=== PATIENT | male | born 1990 | race Caucasian/White ===

== ENCOUNTER 2023-07-24 15:06 | Emergency (ER) | payer SELFPAY ==
[2023-07-24 15:08] VITALS: BP 143/81; PULSE 80; RESP 16; TEMP 36.8; O2SAT 98; BMI 35.2
--- NOTE | 2023-07-24 15:38 | [facility].EDGENADL ---
Discharge Plan Disposition Patient Disposition: Home, Self-Care Chief Complaint: Skin/Abscess/Foreign Body Referrals Follow up/Referrals: Provider,MD Marii [Primary Care Provider] - See instructions Trenton Vick MD [Staff Physician] - See instructions Activity Restrictions/Add. Instructions Additional Instructions/Restrictions: Call your family doctor to establish care for this visit to the emergency department and schedule follow-up within 48 hours to ensure improvement. If you have any worsening of your condition or any other concerning signs or symptoms, return to the emergency department or your primary care doctor for further evaluation. As discussed, the redness around your elbow can get worse for the next 2 to 3 days before getting better. If it continues to get worse after Sunday, 07/26, return to the emergency department for further evaluation. Clinical Impressions Clinical Impression: Cellulitis Instructions Patient Instructions: DI for Skin Abscess Discharge ED Provider: Jan Gavin General Adult HPI General Chief complaint: Skin/Abscess/Foreign Body Stated complaint: possible spider bite right elbow Time Seen by Provider: 07/24/23 15:10 Mode of Arrival: Ambulatory Source of Information: Patient Limitations: No Limitations Description of Symptoms (Recalled from ER Triage Doc. by RN): Patient reports possible spider bite to right elbow. Elbow is red and swollen with black center. History of Present Illness HPI narrative: [id number]-old male unvaccinated no medical history presenting with sore on his right elbow. Patient states that he is felt fatigued today, started having swelling in his right arm. He states that he thinks his swelling is a result of a sore that he has on the medial aspect near his right elbow. Sore started last week has a small ulceration, has gotten worse and this morning started draining white thick, purulent material. No fevers or chills, but lack of energy associated with it today. Has not taken any medications for it. Patient does work with animals, on farm, primarily with horses, but intermittently with sheep, goats and other livestock. No recent travel or obvious trauma. Please note that above description of symptoms, in this electronic medical record under categorization of recalled from ER triage doctor by RN are reflective of an initial nursing assessment, however, is not reflective of my full history and physical exam that was personally taken and clarified. Consequentially, this preceding description of symptoms, which may include the patient's categorized chief complaint in the EMR, do not reflect my personal clinical impression, and the ultimate description of history of present illness and patient stated complaints should be deferred to this section of the note. Unless stated otherwise or congruent with this section of the note, additional signs, symptoms, or incongruence should be interpreted as inaccurate with my clinical impression. Related Data Allergies Allergy/AdvReac Type Severity Reaction Status Date / Time No Known Allergies Allergy Verified 07/24/23 15:25 [facility] Disclaimer: The information contained in this section may have been updated after the patient was seen, as this information can be updated by other users. Social History Smoking Status: Unknown if ever smoked alcohol intake: never current occupational status: employed Travel in the last 8 weeks: None ROS Obtained: Yes All systems reviewed & no additional complaints except as documented Physical Exam General General appearance: alert and in no apparent distress Head Head exam: atraumatic and normocephalic Eye Eye exam: Present normal appearance, PERRL and EOMI ENT ENT exam: Present mucous membranes moist Neck Neck exam: Present normal inspection, full ROM and trachea midline Respiratory Respiratory exam: Absent respiratory distress, wheezes, stridor, accessory muscle use or prolonged expiratory phase Cardiovascular Cardiovascular exam: Present normal rhythm Abdominal Exam Abdominal exam: Present soft; Absent distention, tenderness, guarding, rebound or rigidity Extremities Exam Extremities exam: Present edema and other (Denying tenderness. He has 1 cm, circular, ulcerated, necrotic eschar proximal/medial forearm. Associated erythema, edema. Neurovascularly intact with full range of motion.); Absent tenderness Neurological Exam Neurological exam: Present alert, oriented X3, CN II-XII intact and normal gait; Absent motor sensory deficit Skin Skin exam: Present warm and dry; Absent diaphoresis or erythema Medical Decision Making Medical Records Medical records reviewed: Yes I reviewed the patient's medical records. Rip Inquiry Pt receiving controlled substance: No Rip was queried for this patient: No Vital Signs: 07/24/23 15:08 Temperature 98.2 F Temperature Source Oral Pulse Rate [Radial] 80 Respiratory Rate 16 Blood Pressure [Left Arm] 143/81 H Blood Pressure Mean [Left Arm] 101 Blood Pressure Source [Left Arm] Automatic Cuff Blood Pressure Position [Left Arm] Sitting 02 Sat by Pulse Oximetry 98 Oxygen Delivery Method Room Air Lab Data Lab Results 07/24/23 15:46: WBC 10.1, RBC 4.49 L, Hgb 13.8 L, Hct 41.7 L, MCV 93.0, MCH 30.8, MCHC 33.1, RDW 14.1, Plt Count 349, MPV 7.6, Neut % (Auto) 65.3, Lymph % (Auto) 25.0, [place] % (Auto) 6.2, Eos % (Auto) 2.8, Baso % (Auto) 0.6, Neut # (Auto) 6.6, Lymph # (Auto) 2.5, [place] # (Auto) 0.6, Eos # (Auto) 0.3, Baso # (Auto) 0.1, Sodium 143, Potassium 4.6, Chloride 107, Carbon Dioxide 30, Anion Gap 10.6, BUN 11, Creatinine 1.10, Estimated Creat Clear 158, Estimated GFR 77, Est GFR ( Amer) 93, Glucose 104 H, Lactate 1.1, Calcium 9.6, Total Bilirubin 0.4, AST 34, ALT 27, Alkaline Phosphatase 70, Total Protein 7.7, Albumin 4.1, Globulin 3.6 H, Albumin/Globulin Ratio 1.1 07/24/23 15:46 07/24/23 15:46 Orders (Tests/Meds): ED MEDICATIONS Discontinued Medications Generic Name Dose Route Start Last Admin Trade Name Freq PRN Reason Stop Dose Admin Dalbavancin 1,500 mg/ Dextrose 250 mls @ 500 mls/hr 07/24/23 16:30 07/24/23 17:10 IV 07/24/23 16:31 500 mls/hr ONCE ONE Administration Ketorolac Tromethamine 15 mg 07/24/23 15:19 07/24/23 15:57 Ketorolac 30mg/Ml Vial IV 07/24/23 15:20 15 mg ONCE ONE Administration Tetanus Immune Globulin 250 unit 07/24/23 15:19 07/24/23 15:58 Tetanus Immune Globulin 250 Units IM 07/24/23 15:20 250 unit ONCE ONE Administration Tetanus/Reduced Diphtheria/Acell Pertussis 0.5 ml 07/24/23 15:19 07/24/23 15:57 Tet/Diphth/Pert-Adult 0.5ml Syringe IM 07/24/23 15:20 0.5 ml .ONCE ONE Administration ORDERS Category Date Time Status POCUS Point of Care (ER Only) Stat Exams 07/24/23 15:20 Completed CBC w/Auto Diff [Complete Blood Count Auto Diff] Stat Lab 07/24/23 15:46 Completed CMP [Comprehensive Metabolic Panel] Stat Lab 07/24/23 15:46 Completed Lactic Acid Stat Lab 07/24/23 15:46 Completed Blood Culture Stat Micro 07/24/23 15:56 Received Wound Culture and Gram Stain Stat Micro 07/24/23 15:46 Received Medical Decision Narrative: [id number]-old male unvaccinated no medical history presenting with sore on his right elbow. Patient states that he is felt fatigued today, started having swelling in his right arm. He states that he thinks his swelling is a result of a sore that he has on the medial aspect near his right elbow. Sore started last week has a small ulceration, has gotten worse and this morning started draining white thick, purulent material. No fevers or chills, but lack of energy associated with it today. Has not taken any medications for it. Patient does work with animals, on farm, primarily with horses, but intermittently with sheep, goats and other livestock. No recent travel or obvious trauma. History obtained with patient. Patient's history complicated by lack of mechanism. On physical exam, patient hemodynamically stable, afebrile, nontachycardic, appropriate. He has multiple small, ulcerated lesions on nose, ear, distal upper and lower extremities. No evidence of purpura. On his right upper extremity proximal medial elbow, he has an 1 cm circular necrotic eschar with associated surrounding cellulitis. Neurovascular intact with range of motion intact. Draining scant, thick and clear discharge with application of pressure. Minimally tender. Differential includes cellulitis, abscess, cutaneous anthrax, among others. Because patient not up-to-date on vaccinations, was given tetanus immunoglobulin and Tdap. Labs independently interpreted and significant for nonactionable and normal overall. Blood cultures drawn and pending, wound cultures also drawn and pending. [id number] ultrasound at bedside without abscess, communicating with skin. He does have significant surrounding cellulitis. No evidence of gas. Patient given 1500 mg dalbavancin. Given Toradol for pain relief. Because patient at baseline without signs or symptoms of clinical decompensation, deemed appropriate for discharge. Results were relayed to patient who voiced understanding and were agreeable to outpatient management and follow up. I discussed my clinical impression with patient and answered all questions. At this time, the evidence for any other entities in the differential is insufficient to warrant any further testing or ED observation. This was explained as well. Advisory was given that persistent or worsening symptoms require further evaluation. I confirmed the understanding of this discussion. Critical Care Critical Care Time Critical Care Time: No
[2023-07-24] MEDS: KETOROLAC 30MG/ML VIAL 15 MG IV (15:57)
[2023-07-24] MEDS: TET/DIPHTH/PERT-ADULT 0.5ML SYRINGE 0.5 ML IM (15:57)
[2023-07-24] MEDS: TETANUS IMMUNE GLOBULIN 250 UNITS 250 UNIT IM (15:58)
[2023-07-24 16:00] LABS: Basophils # 0.1 K/mm3 (0-0.2); Basophils % 0.6 % (0.1-2.0); Eosinophils # 0.3 K/mm3 (0.0-0.4); Eosinophils % 2.8 % (0.1-12.0); Hematocrit 41.7 % (42.0-52.0); Hemoglobin 13.8 g/dL (14.1-18.0); Lymphocytes # 2.5 K/mm3 (0.7-4.5); Mean Corpuscular HGB Conc 33.1 g/dL (31.8-35.4); Mean Corpuscular Hemoglobin 30.8 pg (27.0-31.2); Mean Platelet Volume 7.6 fl (7.4-10.4); Monocytes # 0.6 K/mm3 (0.1-1.0); Monocytes % 6.2 % (1.7-9.3); Neutrophils # 6.6 K/mm3 (1.8-7.8); Neutrophils % 65.3 % (37.0-80.0); Platelet Count 349 K/mm3 (142-424); Red Blood Count 4.49 M/mm3 (4.60-6.20); Red Cell Distribution Width 14.1 % (11.5-17.5); White Blood Count 10.1 K/mm3 (4.8-10.8)
[2023-07-24 16:02] LABS: Chloride 107 mmol/L (98-107); Potassium 4.6 mmoL/L (3.5-5.1); Sodium 143 mmol/L (136-145)
[2023-07-24 16:05] LABS: Alanine Aminotransferase 27 U/L (12-78); Albumin Level 4.1 g/dl (3.5-5.0); Albumin/Globulin Ratio 1.1 (1.1-1.8); Alkaline Phosphatase 70 U/L (38-126); Anion Gap 10.6 mEq/L (5-15); Aspartate Amino Transferase 34 U/L (17-59); Bilirubin,Total 0.4 mg/dl (0.2-1.3); Blood Urea Nitrogen 11 mg/dl (9-20); Calcium 9.6 mg/dl (8.4-10.2); Carbon Dioxide 30 mmol/L (22.0-30.0); Creatinine Clearance Estimated 158 mL/min (50-200); Estimated Glomerular Filt Rate 77 ml/min (>60); GFR (African American) 93 ML/MIN (>60); Globulin 3.6 g/dL (1.3-3.2); Glucose 104 mg/dl (74-100); Total Protein,Serum 7.7 g/dl (6.3-8.2)
[2023-07-24 16:06] LABS: Lactic Acid 1.1 mmol/L (0.7-2.1)
[2023-07-24] MEDS: DALBAVANCIN HCL 1,500 MG in DEXTROSE 5 % IN WATER 250 ML 500 MG IV (17:10)
[2023-07-24 18:05] VITALS: BP 150/91; PULSE 68; RESP 16; TEMP 36.8; O2SAT 98
--- NOTE | 2023-07-30 09:52 | PC.NURSE ---
wound culture results discussed with , pt given enio during er visit, ntd
== END 2023-07-24 18:07 | disposition home or self-care (01) ==
PROVIDERS: Emergency Provider Emergency Medicine
DX: L03.113 Cellulitis of right upper limb (principal); B95.62 Methicillin resistant Staphylococcus aureus infection as the cause of diseases classified elsewhere; Z23 Encounter for immunization
CPT/HCPCS: 80053; 83605; 85025; 87040; 87070; 87205; 90471; 90715; 96374; 96375; 99284; J0875